=== PATIENT | male | born 1965 | race Caucasian/White ===

== ENCOUNTER 2018-04-09 15:14 | Inpatient (IN) ==
[2018-04-09] MEDS ORDERED: Ketorolac Inj 30 MG/ML (IVP) Vial IV.PUSH ONE (15:59)
[2018-04-09] MEDS ORDERED: Sod Chloride 0.9% Inj 1,000 ML IV.SIG SCH (16:00)
[2018-04-09 16:33] LABS: Baso # (Auto) 0.1 th/mm3 (0.0-0.2); Baso % (Auto) 1.3 % (0.0-2.0); Eos # (Auto) 0.6 th/mm3 (0.0-0.4); Eos % (Auto) 8.4 % (0.0-4.0); Hematocrit 38.2 % (39.0-51.0); Hemoglobin 12.8 gm/dL (13.0-17.0); Lymph # (Auto) 1.1 th/mm3 (1.0-4.8); Lymph % (Auto) 14.9 % (9.0-44.0); Mean Corpuscular HGB Conc 33.5 % (32.0-36.0); Mean Corpuscular Hemoglobin 29.8 pg (27.0-34.0); Mean Platelet Volume 7.5 fL (7.0-11.0); Mono # (Auto) 0.8 th/mm3 (0.0-0.9); Mono % (Auto) 11.6 % (0.0-8.0); Neut # (Auto) 4.5 th/mm3 (1.8-7.7); Neut % (Auto) 63.8 % (16.0-70.0); Platelet Count 317 th/mm3 (150-450); Red Blood Count 4.29 mil/mm3 (4.50-5.90); White Blood Count 7.1 th/mm3 (4.0-11.0)
[2018-04-09 16:38] LABS: Bilirubin,Urine Negative (Negative); Clarity,Urine Slightly Cloudy (Clear); Color,Urine Yellow (Yellw/Straw); Glucose,Urine (UA) Negative (Negative); Leukocyte Esterase,Urine Negative (Negative); Nitrite,Urine Negative (Negative); Specific Gravity,Urine 1.025 (1.002-1.035); Urobilinogen,Urine 0.2 mg/dL (Less than 2)
[2018-04-09 16:49] LABS: RBC,Urine Innumerable /hpf (0-3)
[2018-04-09 16:52] LABS: Bacteria,Urine Rare /hpf; Mucus,Urine Few /lpf (Occasional)
--- NOTE | 2018-04-09 17:11 | CT ---
EXAM DATE: 04/09/2018 5:03 PM EST AGE/SEX: 52 years / Male INDICATIONS: Left Flank Pain CLINICAL DATA: This is the patient's initial encounter. Patient reports that signs and symptoms have been present for 2 days and indicates a pain score of 10/10. MEDICAL/SURGICAL HISTORY: Hypothyroidism. Renal calculi. Scoliosis, Spastic hemiparesis None. RADIATION DOSE: 6.84 CTDI (mGy) COMPARISON: [facility], CT ABDOMEN & PELVIS W/O CONTRAST, 04/02/2018. . TECHNIQUE: Multiple contiguous axial images were obtained through the abdomen. Images were obtained using multiple row detector helical technique. Using automated exposure control and adjustment of the mA and/or kV according to patient size, radiation dose was kept as low as reasonably achievable to o btain optimal diagnostic quality images. DICOM format image data is available electronically for rev iew and comparison. FINDINGS: Lower Lungs: The visualized lower lungs are clear. Liver: The liver has a homogeneous density without space-occupying lesion. There is no dilation of th e biliary tree. Spleen: Homogeneous density without enlargement. Pancreas: Unremarkable without mass or calcification. Kidneys: 2 mm calculus in the upper pole of the right kidney. 2 mm calculus in the lower pole the ri ght kidney. 2 mm calculus in the upper pole the left kidney. 1 mm calculus in the lower pole the left kidney. 3 mm calculus in the mid left ureter resulting in mild proximal hydroureter. No mariano hydron ephrosis. Adrenal Glands: Unremarkable. Aorta: The aorta and proximal iliac vessels are grossly unremarkable without aneurysmal dilation. Bowel/Mesentery: The bowel loops are grossly unremarkable. The cecum and sigmoid colon have a normal configuration. Abdominal Wall: Fat-containing periumbilical hernia unchanged. No bowel involvement. Retroperitoneum: No evidence of adenopathy in the retrocrural, para-aortic, or deep pelvic regions. Bladder: Contours are smooth. Reproductive Organs: Unremarkable. Inguinal: The inguinal region is unremarkable without evidence of adenopathy. Bony Structures: Surgical hardware in the proximal right femur. Otherwise unremarkable. CONCLUSION: 1. Mid left ureteral calculus with mild proximal left hydroureter. 2. Multiple bilateral renal calculi. 3. Fat-containing periumbilical hernia unchanged. Electronically signed by: Alvaro Mendoza MD Board Certified Radiologist 04/09/2018 5:10 PM EST
[2018-04-09 17:16] LABS: Alanine Aminotransferase 20 U/L (12-78); Albumin 3.1 g/dL (3.4-5.0); Alkaline Phosphatase 96 U/L (45-117); Anion Gap 7 meq/L (5-15); Aspartate Aminotransferase 28 U/L (15-37); Blood Urea Nitrogen 14 mg/dL (7-18); Calcium 8.3 mg/dL (8.5-10.1); Carbon Dioxide 24.7 meq/L (21.0-32.0); Chloride 89 meq/L (98-107); Glomerular Filtration Rate Greater Than 89 mL/min (>89); Glucose,Random 94 mg/dL (74-106); Potassium 4.3 meq/L (3.5-5.1); Total Protein 6.6 g/dL (6.4-8.2)
[2018-04-09 17:20] LABS: Sodium 121 meq/L (136-145)
--- NOTE | 2018-04-09 17:34 | ED ---
HPI General Chief complaint: Back Pain/Injury Stated complaint: Lower back pain/spasms x 2 days Time Seen by Provider: 04/09/18 15:46 Source: patient Mode of arrival: wheelchair Limitations: no limitations History of Present Illness HPI narrative: Patient is a 52 year old male with history of spasticity of the left side, who comes in complaining of lower back spasms. He has been here 3 times over the past few weeks due to back pain and was found to have a kidney stone. He has followed up with urology and is taking Ketorolac for pain. Since last night he has been complaining of spasms across his lower back. He has not had fever or chills. He denies nausea or vomiting. Mom has noticed more blood in his urine again. Severity is moderate. Related Data Home Medications Medication Instructions Recorded Confirmed atorvastatin 10 mg PO DAILY 03/26/18 04/09/18 baclofen 20 mg PO DAILY 03/26/18 04/09/18 citalopram 20 mg PO DAILY 03/26/18 04/09/18 desmopressin 0.8 mg PO HS 03/26/18 04/09/18 lamotrigine 200 mg PO BID 03/26/18 04/09/18 levothyroxine 75 mcg PO DAILY 03/26/18 04/09/18 Previous Rx's Medication Instructions Recorded ibuprofen 800 mg PO Q6H PRN #30 tab 03/26/18 tamsulosin [Flomax] 0.4 mg PO DAILY #7 cap 03/29/18 Allergies Allergy/AdvReac Type Severity Reaction Status Date / Time alendronate sodium Allergy Severe Gastrointestinal Verified 04/02/18 00:18 [From Fosamax] Upset meperidine Allergy Severe Seizures Verified 04/02/18 00:18 olanzapine Allergy Severe Agitation Verified 04/02/18 00:18 hydromorphone [From Dilaudid] AdvReac Rash, Verified 04/09/18 15:38 Generalized Review of Systems ROS: all other systems reviewed are negative Constitutional Denies chills and Denies fever(s) ENT Denies dizziness Cardiovascular Denies chest pain and Denies dyspnea Respiratory Denies cough Gastrointestinal Denies nausea and Denies vomiting Musculoskeletal Reports back pain Integumentary/Breasts Denies wounds Neurologic Denies paresthesias [facility] Medical History Medical History Complete amputation of left foot (Acute) High cholesterol (Acute) Hypothyroidism (Acute) Scoliosis (Acute) Spastic hemiparesis (Acute) Social History Social History Substance History: No History of Abuse Second Hand Smoke Exposure: No Smoking Status: Never smoker How Often Do You Have a Drink Containing Alcohol: Never Recent Travel in [facility] within the Last 8 Weeks: No Recent Out of Country Travel within the Last 8 Weeks: No Immunization History Tetanus Immunization: Unsure Exam Narrative Exam Narrative: GENERAL: Awake and alert, in no acute distress. SKIN: Focused skin assessment warm/dry. No wounds or signs of infection. HEAD: Atraumatic. Normocephalic. EYES: Pupils equal and round. No scleral icterus. No injection or drainage. ENT: No nasal bleeding or discharge. Mucous membranes pink and moist. NECK: Trachea midline. No JVD. CARDIOVASCULAR: Regular rate and rhythm. No murmur appreciated. RESPIRATORY: No accessory muscle use. Clear to auscultation. Breath sounds equal bilaterally. GASTROINTESTINAL: Abdomen soft, non-tender, nondistended. MUSCULOSKELETAL: No obvious deformities. No clubbing. No cyanosis. No edema. NEUROLOGICAL: Awake and alert. paralysis of the left side. PSYCHIATRIC: Appropriate mood and affect; insight and judgment normal. Course Initial Documented Vital Signs Temperature 97.9 F 04/09/18 15:20 Pulse Rate 66 04/09/18 15:20 Respiratory Rate 20 04/09/18 15:20 Blood Pressure 112/57 L 04/09/18 15:20 Pulse Oximetry 96 04/09/18 15:20 Last Documented Vital Signs Temperature 97.9 F 04/09/18 15:20 Pulse Rate 66 04/09/18 15:20 Respiratory Rate 20 04/09/18 15:20 Blood Pressure 112/57 L 04/09/18 15:20 Pulse Oximetry 96 04/09/18 15:20 Medical Decision Making [facility] Narrative Medical decision making narrative: Patient is a 52 year old male who comes in complaining of lower back pain. Mom is very concerned about his kidney stone. Pain is not reproducible on exam. IV established, labs sent. Labs concerning for sodium of 121. Patient is on Desmopressin and reports compliance with this medication. CT shows a 3mm stone in the left ureter, minimal hydronephrosis. Patient given Toradol and Flexeril with some relief. Started to have spasms again, given Valium. Patient to be admitted for further management. Medical Screen Exam Complete: Yes Emergency Medical Condition: Yes Differential Diagnosis Differential Diagnosis: UTI vs renal stone vs muscle spasm Medical Records Medical records reviewed: Yes I reviewed the patient's medical records. Lab Data Lab results reviewed: Yes I reviewed the patient's lab results. Result diagrams: 04/09/18 16:18 04/09/18 16:18 Lab Results 04/09/18 04/09/18 04/09/18 Range/Units 16:18 16:18 16:30 CBC w Diff Auto diff final WBC 7.1 (4.0-11.0) th/mm3 RBC 4.29 L (4.50-5.90) mil/mm3 Hgb 12.8 L (13.0-17.0) gm/dL Hct 38.2 L (39.0-51.0) % MCV 89.0 (80.0-100.0) fL MCH 29.8 (27.0-34.0) pg MCHC 33.5 (32.0-36.0) % RDW 12.0 (11.6-17.2) % Plt Count 317 (150-450) th/mm3 MPV 7.5 (7.0-11.0) fL Neut % (Auto) 63.8 (16.0-70.0) % Lymph % (Auto) 14.9 (9.0-44.0) % [place] % (Auto) 11.6 H (0.0-8.0) % Eos % (Auto) 8.4 H (0.0-4.0) % Baso % (Auto) 1.3 (0.0-2.0) % Neut # (Auto) 4.5 (1.8-7.7) th/mm3 Lymph # (Auto) 1.1 (1.0-4.8) th/mm3 [place] # (Auto) 0.8 (0.0-0.9) th/mm3 Eos # (Auto) 0.6 H (0.0-0.4) th/mm3 Baso # (Auto) 0.1 (0.0-0.2) th/mm3 WBC Differential . Differential Comment . Sodium 121 L* (136-145) meq/L Potassium 4.3 (3.5-5.1) meq/L Chloride 89 L (98-107) meq/L Carbon Dioxide 24.7 (21.0-32.0) meq/L Anion Gap 7 (5-15) meq/L BUN 14 (7-18) mg/dL Creatinine 0.80 (0.60-1.30) mg/dL Estimated GFR Greater than 89 (>89) mL/min Random Glucose 94 (74-106) mg/dL Calcium 8.3 L (8.5-10.1) mg/dL Total Bilirubin 0.2 (0.2-1.0) mg/dL AST 28 (15-37) U/L ALT 20 (12-78) U/L Alkaline Phosphatase 96 (45-117) U/L Total Protein 6.6 (6.4-8.2) g/dL Albumin 3.1 L (3.4-5.0) g/dL Ur Collection Type Clean catch Urine Color Yellow (Yellw/Straw) Urine Clarity Slightly cloudy (Clear) Urine pH 6.0 (5.0-8.5) Ur Specific [place] 1.025 (1.002-1.035) Urine Protein Trace (Neg-Trace) mg/dL Urine Glucose (UA) Negative (Negative) mg/dL Urine Ketones Negative (Negative) mg/dL Urine Occult Blood Large H (Negative) Urine Nitrate Negative (Negative) Urine Bilirubin Negative (Negative) Urine Urobilinogen 0.2 (Less than 2) mg/dL Ur Leukocyte Esterase Negative (Negative) Urine RBC Innumerable H (0-3) /hpf Urine WBC 6-8 H (0-5) /hpf Urine Bacteria Rare H (None) /hpf Urine Mucus Few H (Occasional) /lpf Micro UA Comment Culture not ind Ur Microscopic Review Microscopic reviewed Urine Culture Comments Culture not ind Imaging Data Radiologist's impression: Abdomen/Pelvis CT 04/09/18 15:59 CONCLUSION: 1. Mid left ureteral calculus with mild proximal left hydroureter. 2. Multiple bilateral renal calculi. 3. Fat-containing periumbilical hernia unchanged. Discharge Plan Discharge Disposition Patient Disposition: ED Admit(ED Internal Use Only) Discharge Condition Condition: Stable Discharge Details Diagnosis: Acute hyponatremia Physicians Team ED Provider: Delfina Ward Primary Care Provider: Byron Carter Rxs /Orders / Referrals /Forms Prescriptions: No Action atorvastatin 20 mg Tablet 10 mg PO DAILY RF: 0 lamotrigine 200 mg Tablet 200 mg PO BID RF: 0 desmopressin 0.2 mg Tablet 0.8 mg PO HS RF: 0 levothyroxine 75 mcg Tablet 75 mcg PO DAILY RF: 0 citalopram 20 mg Tablet 20 mg PO DAILY RF: 0 baclofen 10 mg Tablet 20 mg PO DAILY RF: 0 ibuprofen 800 mg tablet 800 mg PO Q6H PRN (Reason: pain) Qty: 30 RF: 0 tamsulosin [Flomax] 0.4 mg capsule 0.4 mg PO DAILY Qty: 7 RF: 0 Status ED Status: With Doctor
[2018-04-09] MEDS ORDERED: diazePAM 5 MG Tablet PO ONE (17:50)
[2018-04-09] MEDS ORDERED: Bisacodyl 10 MG Supp RECTAL PRN (17:52)
[2018-04-09] MEDS ORDERED: Acetaminophen 325 MG Tablet PO PRN (17:52)
[2018-04-09] MEDS ORDERED: Non-Formulary Drug (Lamotrigine [Lamotrigine] 200 MG) PO SCH (21:00)
[2018-04-09] MEDS: lamoTRIgine 100 MG Tablet PO SCH (21:12)
[2018-04-09 22:38] LABS: Chloride 95 meq/L (98-107); Potassium 3.8 meq/L (3.5-5.1); Sodium 128 meq/L (136-145)
[2018-04-09 22:40] LABS: Anion Gap 5 meq/L (5-15); Calcium 8.3 mg/dL (8.5-10.1); Carbon Dioxide 27.7 meq/L (21.0-32.0); Glucose,Random 90 mg/dL (74-106)
[2018-04-09 22:41] LABS: Blood Urea Nitrogen 12 mg/dL (7-18); Magnesium 2.1 mg/dL (1.5-2.5)
[2018-04-09 22:44] LABS: Glomerular Filtration Rate Greater Than 89 mL/min (>89); Phosphorus 3.7 mg/dL (2.5-4.9)
[2018-04-10 07:44] LABS: Baso # (Auto) 0.1 th/mm3 (0.0-0.2); Baso % (Auto) 1.1 % (0.0-2.0); Eos # (Auto) 0.9 th/mm3 (0.0-0.4); Eos % (Auto) 8.8 % (0.0-4.0); Hematocrit 37.5 % (39.0-51.0); Hemoglobin 12.7 gm/dL (13.0-17.0); Lymph # (Auto) 2.2 th/mm3 (1.0-4.8); Lymph % (Auto) 21.9 % (9.0-44.0); Mean Corpuscular HGB Conc 33.8 % (32.0-36.0); Mean Corpuscular Hemoglobin 30.3 pg (27.0-34.0); Mean Corpuscular Volume 89.8 fL (80.0-100.0); Mean Platelet Volume 7.9 fL (7.0-11.0); Mono # (Auto) 1.1 th/mm3 (0.0-0.9); Mono % (Auto) 11.5 % (0.0-8.0); Neut # (Auto) 5.6 th/mm3 (1.8-7.7); Neut % (Auto) 56.7 % (16.0-70.0); Platelet Count 316 th/mm3 (150-450); Red Blood Count 4.18 mil/mm3 (4.50-5.90); Red Cell Distribution Width 12.2 % (11.6-17.2); White Blood Count 9.9 th/mm3 (4.0-11.0)
[2018-04-10] MEDS: lamoTRIgine 100 MG Tablet PO SCH (08:00)
[2018-04-10 08:08] LABS: Chloride 98 meq/L (98-107); Potassium 3.8 meq/L (3.5-5.1); Sodium 132 meq/L (136-145)
[2018-04-10 08:12] LABS: Anion Gap 8 meq/L (5-15); Blood Urea Nitrogen 11 mg/dL (7-18); Calcium 8.3 mg/dL (8.5-10.1); Carbon Dioxide 26.4 meq/L (21.0-32.0); Glucose,Random 79 mg/dL (74-106)
[2018-04-10 08:16] LABS: Glomerular Filtration Rate Greater Than 89 mL/min (>89)
[2018-04-10] MEDS ORDERED: Levothyroxine 75 MCG Tablet PO SCH (09:00)
[2018-04-10] MEDS ORDERED: Citalopram 20 MG Tablet PO SCH (09:00)
[2018-04-10] MEDS ORDERED: Baclofen 10 MG Tablet PO SCH (09:00)
--- NOTE | 2018-04-10 13:21 | P.HPIM ---
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 Patient is currently on ketorolac for pain as well as Flomax prescribed by his urologist. In the ED patient was found to have sodium of 121 which subsequently improved this morning to 132. She has no febrile episode and since admission he has had significant improvement of back spasm. Inpatient Certification Inpatient Certification: I certify that the inpatient services were ordered in accordance with Medicare regulations governing the order. This includes certification that hospital inpatient services are reasonable and necessary and in the case of services not specified as inpatient-only under 42 CFR 419.22(n), that they are appropriately provided as inpatient services in accordance to with the 2-midnight benchmark under 43 CFR 412.3(e) Estimated Total Length of Stay (Days): 3 Plans for Post Hospital Care: Not yet determined Review of Systems Review of Systems: all other systems reviewed are negative PMFSH Medical History Medical History Complete amputation of left foot (Acute) High cholesterol (Acute) Hypothyroidism (Acute) Scoliosis (Acute) Spastic hemiparesis (Acute) Social History Social History Substance History: No History of Abuse Second Hand Smoke Exposure: No Smoking Status: Never smoker How Often Do You Have a Drink Containing Alcohol: Never Recent Travel in [facility] within the Last 8 Weeks: No Recent Out of Country Travel within the Last 8 Weeks: No Immunization History Tetanus Immunization: Unsure Hx Influenza Vaccine This Season: Yes Medications and Allergies Allergies Allergy/AdvReac Type Severity Reaction Status Date / Time alendronate sodium Allergy Severe Gastrointestinal Verified 04/02/18 00:18 [From Fosamax] Upset meperidine Allergy Severe Seizures Verified 04/02/18 00:18 olanzapine Allergy Severe Agitation Verified 04/02/18 00:18 hydromorphone [From Dilaudid] AdvReac Rash, Verified 04/09/18 15:38 Generalized Home Medications Medication Instructions Recorded Confirmed Type atorvastatin 10 mg PO DAILY 02/09/19 02/23/19 History baclofen 20 mg PO DAILY 03/26/18 04/09/18 History citalopram 20 mg PO DAILY 03/26/18 04/09/18 History desmopressin 0.8 mg PO HS 03/26/18 04/09/18 History lamotrigine 200 mg PO BID 03/26/18 04/09/18 History levothyroxine 75 mcg PO DAILY 03/26/18 04/09/18 History Active Medications: Active Medications Acetaminophen (Tylenol) 650 mg PO Q4H PRN PRN Reason: Temp > 100.4 Al Hydroxide/Mg Hydroxide (Milk Of Magnesia Liq) 30 ml PO Q12H PRN PRN Reason: Mild Constipation Atorvastatin Calcium (Lipitor) 10 mg PO HS DANIEL Baclofen (Lioresal) 20 mg PO HS [facility] Bisacodyl (Dulcolax Supp) 10 mg RECTAL DAILY PRN PRN Reason: SEVERE CONSITIPATION Lactulose (Lactulose Liq) 30 ml PO DAILY PRN PRN Reason: SEVERE CONSITIPATION Lamotrigine (Lamictal) 200 mg PO BID [facility] Last Admin: 04/10/18 08:00 Dose: 200 mg Levothyroxine Sodium (Synthroid) 75 mcg PO DAILY [facility] Last Admin: 04/10/18 08:00 Dose: 75 mcg Ondansetron HCl (Zofran Inj) 4 mg IV.PUSH Q6H PRN PRN Reason: NAUSEA OR VOMITING Sennosides (Senokot) 17.2 mg PO Q12H PRN PRN Reason: Moderate Constipation Sodium Chloride (Ns Flush) 2 ml IV.FLUSH BID [facility] Last Admin: 04/10/18 09:50 Dose: Not Given Sodium Chloride (Ns Flush) 2 ml IV.FLUSH PRN PRN PRN Reason: FLUSH AFTER USING IV ACCESS Tamsulosin HCl (Flomax) 0.4 mg PO DAILY [facility] Last Admin: 04/10/18 08:00 Dose: 0.4 mg Physical Exam Vital signs: Vital Signs 04/09/18 15:20 04/09/18 18:43 04/09/18 20:00 Temperature 97.9 F 96.3 F L Pulse Rate 66 62 Respiratory Rate 20 18 20 Blood Pressure 112/57 L 138/64 Pulse Oximetry 96 95 04/10/18 00:00 04/10/18 04:00 04/10/18 08:00 Temperature 96.6 F L 96.5 F L 97.2 F L Pulse Rate 64 64 69 Respiratory Rate 20 20 14 Blood Pressure 127/63 108/62 118/74 Pulse Oximetry 95 97 98 Intake & Output 04/09/18 04/10/18 04/10/18 18:59 06:59 18:59 Intake Total 1000 / 1000 240 / 240 Output Total 900 / 900 Balance 1000 / 1000 -660 / -660 Weight 50 kg 60.5 kg Intake: IV 1000 / 1000 Oral 240 / 240 Output: Urine 900 / 900 Other: Weight On Admission 60.5 kg Narrative: GENERAL: Sitting comfortably in a wheelchair SKIN: Warm and dry. HEAD: Atraumatic. Normocephalic. EYES: Pupils equal and round. No scleral icterus. No injection or drainage. ENT: No nasal bleeding or discharge. Mucous membranes pink and moist. NECK: Trachea midline. No JVD. CARDIOVASCULAR: Regular rate and rhythm. RESPIRATORY: No accessory muscle use. Clear to auscultation. Breath sounds equal bilaterally. GASTROINTESTINAL: Abdomen soft, non-tender, nondistended. Hepatic and splenic margins not palpable. MUSCULOSKELETAL: Extremities without clubbing, cyanosis, or edema. No obvious deformities. NEUROLOGICAL: Awake and alert. No obvious cranial nerve deficits. Motor grossly within normal limits. Five out of 5 muscle strength in the arms and legs. PSYCHIATRIC: Appropriate mood and affect; insight and judgment normal. Results Labs CBC & Chem 7: 04/10/18 06:00 04/10/18 06:00 Imaging Impressions Abdomen/Pelvis CT 04/09/18 15:59 CONCLUSION: 1. Mid left ureteral calculus with mild proximal left hydroureter. 2. Multiple bilateral renal calculi. 3. Fat-containing periumbilical hernia unchanged. Caprini VTE Risk Assessment Caprini VTE Risk Assessment: No/Low Risk (score <= 1) Caprini Risk Assessment Model: Point Value = 1 Point Value = 2 Point Value = 3 Point Value = 5 Age 41-60 Minor surgery BMI > 25 kg/m2 Swollen legs Varicose veins or History of unexplained or recurrent spontaneous Oral contraceptives or hormone replacement Sepsis (< 1 month) Serious lung disease, including pneumonia (< 1 month) Abnormal pulmonary function Acute myocardial infarction Congestive heart failure (< 1 month) History of inflammatory bowel disease Medical patient at bed rest Age 61-74 Arthroscopic surgery Major open surgery (> 45 min) Laparoscopic surgery (> 45 min) Malignancy Confined to bed (> 72 hours) Immobilizing plaster cast Central venous access Age >= 75 History of VTE Family history of VTE Factor V Leiden Prothrombin [id number] Lupus anticoagulant Anticardiolipin antibodies Elevated serum homocysteine Heparin-induced thrombocytopenia Other congenital or acquired thrombophilia Stroke (< 1 month) Elective arthroplasty Hip, pelvis, or leg fracture Acute spinal cord injury (< 1 month) Prophylaxis Regimen: Total Risk Factor Score Risk Level Prophylaxis Regimen 0-1 Low Early ambulation 2 Moderate Order ONE of the following: *Sequential Compression Device (SCD) *Heparin 5000 units SQ BID 3-4 Higher Order ONE of the following medications: *Heparin 5000 units SQ TID *Enoxaparin/Lovenox 40 mg SQ daily (WT < 150 kg, CrCl > 30 mL/min) *Enoxaparin/Lovenox 30 mg SQ daily (WT < 150 kg, CrCl > 10-29 mL/min) *Enoxaparin/Lovenox 30 mg SQ BID (WT < 150 kg, CrCl > 30 mL/min) AND/OR *Sequential Compression Device (SCD) 5 or more Highest Order ONE of the following medications: *Heparin 5000 units SQ TID (Preferred with Epidurals) *Enoxaparin/Lovenox 40 mg SQ daily (WT < 150 kg, CrCl > 30 mL/min) *Enoxaparin/Lovenox 30 mg SQ daily (WT < 150 kg, CrCl > 10-29 mL/min) *Enoxaparin/Lovenox 30 mg SQ BID (WT < 150 kg, CrCl > 30 mL/min) AND *Sequential Compression Device (SCD) Assessment and Plan Plan 52-year-old man with Mild left ureteral calculus with mild proximal left hydroureter Patient is currently on Flomax and ketorolac prescribed by his urologist Recommend outpatient follow-up with urology Continue with increased p.o. intake Back spasm Secondary to above Improving since admission Continue with ketorolac as needed, however discussed with both patient and his mom regarding side effect of medication i.e. lowering seizure threshold Hyponatremia Admitting with sodium of 121 and currently up to 132 Patient with history of diabetes insipidus Diabetes insipidus Follow-up outpatient with Endocrinology Continue outpatient medications Other chronic medical conditions Continue with chronic home medications Discharge patient to home Condition on discharge: Improved Regular Diet as tolerated Ad Ramila activity Rx written:none Follow-up with primary care physician H&P: Quality VTE Deep Vein Thrombosis/Pulmonary Embolism Present on Admission: No
[2018-04-10 14:09] VITALS: BP 107/70; PULSE 84; RESP 16; TEMP 97.3; O2SAT 93
== END 2018-04-10 14:38 | disposition home or self-care (01) | DRG 694 ==
LOC: PHED 15:14 → PHEDA 17:53 → PH3 18:00
PROVIDERS: ADMIT Hospitalist; ATTEND Hospitalist
CPT/HCPCS: 74176; 80048; 80053; 81001; 83735; 83930; 83935; 84100; 84300; 85025; 90761; 90774; 96361; 96374; 99285; C8952; J1885; J7030